=== PATIENT | male | born 1965 | race Caucasian/White ===

== ENCOUNTER 2017-02-04 17:50 | Emergency (ER) | payer OTHER ==
[~2017-02-04] VITALS: Ht 180.3 cm; Wt 102.0 kg
[~2017-02-04 17:50] MED LIST: CEPH500C3 PO; Z.0.NO CURRENT MEDS
[2017-02-04 17:51] VITALS: BP 163/91; PULSE 99; RESP 22; TEMP 99; O2SAT 94
[2017-02-04] MEDS ORDERED: TETANUS/DIPHTHERIA TOXOID ADULT 0.5 ML VIAL IM ONE (19:30)
[2017-02-04] MEDS ORDERED: CEPH-460 PO (19:52)
[2017-02-04] MEDS ORDERED: IBUP800T23 PO (19:52)
--- NOTE | 2017-02-04 19:52 | PD ---
HPI Chief Complaint: Laceration/Skin Injury Time Seen by Provider: 19:22 Travel History International Travel<30 days: No Contact w/Intl Traveler<30days: No Traveled to known affect area: No History of Present Illness HPI Patient is a 51-year-old male presenting to emergency department for evaluation the laceration. Patient sustained a laceration at work when a piece of tile cut his finger. He has a laceration to his right second finger at the MCP joint. He is uncertain when his last tetanus vaccine was administered, he states it was longer than 10 years. He reports his pain is a 7 out of 10 with movement, he states the pain is sore and aching. Patient denies any numbness, weakness, loss of function in his finger. Patient is self-employed, he has exempt from Workmen's Comp. [facility] Past Medical History Medical History: Denies Significant Hx Diminished Hearing: No Past Surgical History Other Surgery: Yes (vasectomy ) Social History Alcohol Use: Yes (COUPLE OF DRINKS A DAY ) Tobacco Use: Yes (CIGARS OCCASIONALLY) Substance Use: No Allergies-Medications (Allergen,Severity, Reaction): Coded Allergies: No Known Allergies (Verified , 02/04/17) Reported Meds & Prescriptions Reported Meds & Active Scripts Active No Active Prescriptions or Reported Medications Review of Systems Except as stated in HPI: all other systems reviewed are Neg Skin: Positive Other (laceration) Physical Exam Narrative GENERAL: Well-developed, well-nourished, alert male. Resting comfortably in no acute distress. SKIN: Warm and dry. 2 cm superficial laceration to the second MCP joint. HEAD: Normocephalic. EYES: No scleral icterus. No injection or drainage. NECK: Supple, trachea midline. No JVD or lymphadenopathy. CARDIOVASCULAR: Regular rate and rhythm without murmurs, gallops, or rubs. RESPIRATORY: Breath sounds equal bilaterally. No accessory muscle use. GASTROINTESTINAL: Abdomen soft, non-tender, nondistended. MUSCULOSKELETAL: No cyanosis, or edema. Full range of motion in the left hand and fingers, 2+ radial pulse, brisk less than 3 second capillary refill. BACK: Nontender without obvious deformity. No CVA tenderness. Data Data Last Documented VS Vital Signs Date Time Temp Pulse Resp B/P (MAP) Pulse Ox O2 Delivery O2 Flow Rate FiO2 02/04/17 17:51 99.0 99 22 163/91 (115) 94 Room Air Orders Orders Tetanus/Diphtheria Tox Adult (Tetanus/Di (02/04/17 19:30) MDM Medical Decision Making Medical Screen Exam Complete: Yes Emergency Medical Condition: Yes Interpretation(s) Vital Signs Date Time Temp Pulse Resp B/P (MAP) Pulse Ox O2 Delivery O2 Flow Rate FiO2 02/04/17 17:51 99.0 99 22 163/91 (115) 94 Room Air Differential Diagnosis Laceration versus abrasion versus tendon injury versus other Narrative Course Patient sustained a laceration while at work. He is neurovascularly intact with no focal deficits on exam. Please see procedure report for laceration repair. Patient's tetanus vaccine was administered during this emergency department visit. He was given verbal wound care instructions. He was advised that sutures will need to be removed in 10 days. He was advised to keep stitches clean and dry and avoid submersion in water. He was encouraged to follow-up with his primary doctor or return to emergency department for any new or worsening symptoms or to have stitches removed in 10 days. Patient verbalized understanding of these instructions. Patient is stable for discharge. Procedures Procedure Narrative LACERATION LOCATION: Left second MCP on the palmar aspect LENGTH: 2 cm NUMBER OF STITCHES/THELMA: 5 stitches REPAIR: The area of the laceration was prepped with Betadine and sterilely draped. The laceration was infiltrated with 1% lidocaine. The wound was copiously irrigated and explored without evidence of foreign body, tendon injury or neurovascular injury. The wound was closed using 4-0 Prolene. This was a 1 layer repair. A sterile dressing was applied. The patient was advised to keep the dressing clean and dry. Patient tolerated the procedure well. Diagnosis Primary Impression: Laceration of finger Qualified Codes: S61.211A - Laceration without foreign body of left index finger without damage to nail, initial encounter Additional Impression: Tetanus toxoid vaccination administered at current visit Referrals: Primary Care Physician Follow-up in 10 days to have stitches removed or you may return to emergency department Patient Instructions: Care For Your Stitches (ED), General Instructions Additional Instructions: Keep stitches clean and dry, do not submerge and water He may wash your hands with soap and water Stitches will need to be removed in 10 days, you can follow-up with your primary doctor or return to emergency department Return to emergency department immediately for any new or worsening symptoms Med/Other Pt SpecificInfo: Prescription(s) given Scripts Ibuprofen (Ibuprofen) 800 Mg Tab 800 MG PO Q6HR Y for PAIN, #40 TAB 0 Refills Prov: Fariha Walden 02/04/17 Cephalexin (Keflex) 500 Mg Cap 500 MG PO Q12H for Infection for 7 Days, #14 CAP 0 Refills Prov: Fariha Walden 02/04/17 Disposition: 01 DISCHARGE HOME Condition: Stable Fariha Walden Feb 04, 2017 19:52
== END 2017-02-04 20:01 | disposition home or self-care (01) ==
LOC: NEPK 17:50
DX: S61.211A Laceration without foreign body of left index finger without damage to nail, initial encounter (principal); W45.8XXA Other foreign body or object entering through skin, initial encounter; Z23 Encounter for immunization
CPT/HCPCS: 12001; 90471; 90714